=== PATIENT | male | born 1975 | race Two or more races ===

== ENCOUNTER 2017-03-01 16:26 | Emergency (ER) | payer MEDICAID ==
[2017-03-01 16:39] VITALS: BMI 25.0
[2017-03-01] MEDS ORDERED: Sodium Chloride 0.9% 1,000 ML IV STA (16:50)
--- NOTE | 2017-03-01 17:21 | ED PDOC ---
Arrival/HPI - General Chief Complaint: Dizziness/Lightheaded Time Seen by Provider: 03/01/17 16:27 Historian: Patient - History of Present Illness Narrative History of Present Illness (Text): 03/01/17 17:22 A 41 year old male, whose past medical history includes GERD, presents to the emergency department complaining of dizziness. 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 Patient reports he ate what he thought was a piece of candy from client. Soon after, patient felt dizzy and client said candy was an edible marijuana. Patient continued to feel dizzy and tingling sensations for a while. He reports client drove his car and drove him to a hotel, where he rested until morning and afternoon. Patient reports he continues to feel dizzy. Patient denies headache, chest pain or any other complaints at this time. Symptom Onset: Sudden Symptom Course: Unchanged Context: Director Weights And Measures Associated Symptoms (Text): none Past Medical History - Provider Review Nursing Documentation Reviewed: Yes - Infectious Disease Hx of Infectious Diseases: None - Psychiatric Hx Substance Use: No - Anesthesia Hx Anesthesia: No Hx Anesthesia Reactions: No Hx Malignant Hyperthermia: No Family/Social History - Physician Review Nursing Documentation Reviewed: Yes Family/Social History: No Known Family HX Smoking Status: Never Smoked Hx Alcohol Use: No Hx Substance Use: No Allergies/Home Meds Allergies/Adverse Reactions: Allergies No Known Allergies Allergy (Verified 03/01/17 16:34) Home Medications: Home Meds Medication Instructions Recorded Confirmed No Known Home Med 03/01/17 03/01/17 Review of Systems - Physician Review All systems were reviewed & negative as marked: Yes - Review of Systems Constitutional: absent: Fevers Eyes: absent: Vision Changes ENT: Normal Respiratory: absent: SOB Cardiovascular: absent: Chest Pain, Palpitations Gastrointestinal: absent: Abdominal Pain, Nausea, Vomiting Genitourinary Male: absent: Dysuria Neurological: Dizziness. absent: Headache, Focal Weakness Physical Exam Vital Signs Reviewed: Yes Vital Signs Temp Pulse Resp BP Pulse Ox 03/01/17 19:31 98 F 75 20 121/86 100 03/01/17 18:44 98 F 75 20 123/82 100 03/01/17 16:32 98.2 F 82 16 140/90 99 03/01/17 16:30 98 F 84 20 140/90 96 Temperature: Afebrile Blood Pressure: Normal Pulse: Regular Respiratory Rate: Normal Appearance: Positive for: Well-Appearing, Non-Toxic, Comfortable Pain Distress: None Mental Status: Positive for: Alert and Oriented X 3 Finger Stick Blood Glucose: 151 - Systems Exam Head: Present: Atraumatic, Normocephalic Pupils: Present: PERRL Conjunctiva: Present: Normal Mouth: Present: Moist Mucous Membranes Neck: Present: Normal Range of Motion Respiratory/Chest: Present: Clear to Auscultation, Good Air Exchange. No: Respiratory Distress, Accessory Muscle Use Cardiovascular: Present: Regular Rate and Rhythm, Normal S1, S2. No: Murmurs Abdomen: Present: Normal Bowel Sounds. No: Tenderness, Distention, Peritoneal Signs Back: Present: Normal Inspection Upper Extremity: Present: Normal Inspection. No: Cyanosis, Edema Lower Extremity: Present: Normal Inspection. No: Edema Neurological: Present: GCS=15, CN II-XII Intact, Speech Normal Skin: Present: Warm, Dry, Normal Color. No: Rashes Psychiatric: Present: Alert, Oriented x 3, Normal Insight, Normal Concentration Medical Decision Making ED Course and Treatment: 03/01/17 17:18 Impression: A 41 year old male with dizziness. Plan: -- EKG -- chest xray -- labs -- Urinalysis -- Pepcid, IV fluids -- Reassess and disposition Progress Notes: 03/01/17 19:52 EKG: NSR @ 81; no ST/T changes; normal intervals; normal axis. 03/01/17 19:52 Patient with noted history. Labs show mild anemia, which the patient was informed about. Otherwise, vitals are normal with normal ekg and exam. Labs are nondiagnostic. Patient says feels better but still with mild dizziness. CXR is unremarkable. Will d/c and he will follow up pmd. No indication for admission. - Lab Interpretations Lab Results: 03/01/17 17:20 03/01/17 17:20 Lab Results 03/01/17 17:50: Urine Opiates Screen Negative, Urine Methadone Screen Negative, Ur Barbiturates Screen Negative, Ur Phencyclidine Scrn Negative, Ur Amphetamines Screen Negative, U Benzodiazepines Scrn Negative, U Oth Cocaine Metabols Negative, U Cannabinoids Screen Negative 03/01/17 17:50: Urine Color Yellow, Urine Appearance Clear, Urine pH 6.5, Ur Specific [place] 1.015, Urine Protein 30 H, Urine Glucose (UA) Negative, Urine Ketones Negative, Urine Blood Negative, Urine Nitrate Negative, Urine Bilirubin Negative, Urine Urobilinogen 0.2, Ur Leukocyte Esterase Negative, Urine RBC 0 - 2, Urine WBC 0 - 2, Ur Epithelial Cells 0 - 2, Urine Bacteria Few 03/01/17 17:20: Sodium 135, Potassium 4.1, Chloride 99, Carbon Dioxide 26, Anion Gap 14, BUN 15, Creatinine 1.1, Est GFR ( Amer) > 60, Est GFR (Non- Af Amer) > 60, Random Glucose 100, Calcium 9.4, Magnesium 2.3 H, Total Bilirubin 0.6, AST 19, ALT 30, Alkaline Phosphatase 69, Lactate Dehydrogenase 379, Total Creatine Kinase 63, Troponin I < 0.01, Total Protein 8.0, Albumin 4.4 , Globulin 3.6, Albumin/Globulin Ratio 1.2, Lipase 131 03/01/17 17:20: WBC 7.8, RBC 5.06, Hgb 12.3 L, Hct 36.9 L, MCV 72.9 L, MCH 24.3 L, MCHC 33.3, RDW 15.6 H, Plt Count 275, MPV 9.5, Gran % 68.7 H, Lymph % (Auto) 23.9, [place] % (Auto) 7.2 H, Eos % (Auto) 0.1 L, Baso % (Auto) 0.1, Gran # 5.37, Lymph # 1.9, [place] # 0.6, Eos # 0.0, Baso # 0.01 I have reviewed the lab results: Yes - RAD Interpretation Radiology Orders: 03/01/17 17:15 CHEST TWO VIEWS (PA/LAT) [RAD] Stat - EKG Interpretation Interpreted by ED Physician: Yes Type: 12 lead EKG - Medication Orders Current Medication Orders: Discontinued Medications Acetaminophen (Tylenol 325mg Tab) 975 mg PO STAT STA Stop: 03/01/17 18:56 Last Admin: 03/01/17 19:00 Dose: 975 mg Famotidine (Pepcid) 20 mg IVP STAT STA Stop: 03/01/17 16:51 Last Admin: 03/01/17 17:20 Dose: 20 mg Sodium Chloride (Sodium Chloride 0.9%) 1,000 mls @ 999 mls/hr IV .Q1H1M STA Stop: 03/01/17 17:50 Last Admin: 03/01/17 17:23 Dose: 999 mls/hr - Scribe Statement The provider has reviewed the documentation as recorded by the Scribe Edwina Zendejas Provider Scribe Attestation: All medical record entries made by the Scribe were at my direction and personally dictated by me. I have reviewed the chart and agree that the record accurately reflects my personal performance of the history, physical exam, medical decision making, and the department course for this patient. I have also personally directed, reviewed, and agree with the discharge instructions and disposition. Disposition/Present on Arrival - Present on Arrival Any Indicators Present on Arrival: No History of DVT/PE: No History of Uncontrolled Diabetes: No Urinary Catheter: No History of Decub. Ulcer: No History Surgical Site Infection Following: None - Disposition Have Diagnosis and Disposition been Completed?: Yes Diagnosis: Dizziness, Anemia Disposition: HOME/ ROUTINE Disposition Time: 19:25 Patient Plan: Discharge Condition: GOOD Additional Instructions: Drink plenty of fluids. Follow up with your primary care doctor to workup your anemia. Return to the emergency department if any new concerning symptoms. Referrals: Kristi Irby MD [Primary Care Provider] - Follow up with primary
[2017-03-01 17:34] LABS: ADD MANUAL DIFF? NO
[2017-03-01 17:40] LABS: BASO # 0.01 K/mm3 (0.0-2.0); BASO % 0.1 % (0.0-3.0); EOS % 0.1 % (1.5-5.0); GRAN # 5.37 (1.4-6.5); GRAN % 68.7 % (50.0-68.0); HEMATOCRIT 36.9 % (42.0-52.0); LYMPH # 1.9 (1.2-3.4); LYMPH % 23.9 % (22.0-35.0); MEAN CELL VOLUME 72.9 fL (80.0-105.0); MEAN CORPUSCULAR HEMOGLOBIN 24.3 pg (25.0-35.0); MEAN CORPUSCULAR HGB CONC 33.3 g/dl (31.0-37.0); MEAN PLATELET VOLUME 9.5 fl (7.0-11.0); MONO # 0.6 (0.1-0.6); MONO % 7.2 % (1.0-6.0); PLATELET COUNT 275 10^3/uL (120.0-450.0); RED CELL DISTRIBUTION WIDTH 15.6 % (11.5-14.5); WHITE BLOOD COUNT 7.8 10^3/ul (4.5-11.0)
[2017-03-01 18:05] LABS: ALB/GLOB RATIO 1.2 (1.1-1.8); ALKALINE PHOSPHATASE 69 U/L (38-133); ALT/SGPT 30 U/L (7-56); AST/SGOT 19 U/L (15-59); BILIRUBIN,TOTAL 0.6 mg/dL (0.2-1.3); BLOOD UREA NITROGEN 15 mg/dL (7-21); CALCIUM 9.4 mg/dL (8.4-10.5); CARBON DIOXIDE 26 mmol/L (21-33); CHLORIDE 99 mmol/L (98-107); GFR AFRICAN-AMERICAN > 60; GLUCOSE,RANDOM 100 mg/dL (70-110); LIPASE 131 U/L (23-300); MAGNESIUM 2.3 mg/dL (1.7-2.2); POTASSIUM 4.1 mmol/L (3.6-5.0); SODIUM 135 mmol/L (132-148)
[2017-03-01 18:42] LABS: TROPONIN I < 0.01 ng/mL
[2017-03-01 18:44] VITALS: PULSE 75; RESP 20; TEMP 98; O2SAT 100
[2017-03-01 18:54] LABS: PH,URINE 6.5 (4.7-8.0); URINE BILIRUBIN NEGATIVE (NEGATIVE); URINE BLOOD NEGATIVE (NEGATIVE); URINE GLUCOSE (UA) NEGATIVE (NEGATIVE); URINE KETONE NEGATIVE (NEGATIVE); URINE LEUKOCYTE ESTERASE NEGATIVE Leu/uL (NEGATIVE); URINE PROTEIN 30 mg/dL (<30 mg/dL); URINE UROBILINOGEN 0.2 E.U./dL (<1 E.U./dL)
[2017-03-01 18:55] LABS: URINE APPEARANCE CLEAR (CLEAR); URINE COLOR YELLOW (YELLOW)
[2017-03-01 19:15] LABS: URINE BACTERIA FEW (NEG); URINE EPITHELIAL CELLS 0 - 2 /hpf (0-5); URINE RBC 0 - 2 /hpf (0-2); URINE WBC 0 - 2 /hpf (0-6)
[2017-03-01 19:32] VITALS: BP 121/86
--- NOTE | 2017-03-02 08:59 | RAD ---
HISTORY: dizzy COMPARISON: No prior. TECHNIQUE: Chest PA and lateral FINDINGS: LUNGS: The lungs are well inflated and clear. PLEURA: No significant pleural effusion identified. No pneumothorax apparent. CARDIOVASCULAR: Normal. OSSEOUS STRUCTURES: No significant abnormalities. VISUALIZED UPPER ABDOMEN: Normal. OTHER FINDINGS: None. IMPRESSION: No active pulmonary disease.
--- NOTE | 2017-03-02 13:55 | CARD ---
APPROVED REPORT EKG Measurement Heart [id number] <Conclusion> Normal sinus rhythm Normal ECG
== END 2017-03-01 19:32 | disposition home or self-care (01) ==
LOC: ED 16:26
DX: R42 Dizziness and giddiness (principal); D64.9 Anemia, unspecified
CPT/HCPCS: 71020; 80053; 80324; 80345; 80346; 80349; 80353; 80358; 80361; 81001; 82550; 83615; 83690; 83735; 83992; 84484; 85025; 93005; 96361; 96374; 99285; J7040